=== PATIENT | male | born 1990 | race Two or more races ===

== ENCOUNTER 2020-11-24 04:35 | Inpatient (IN) | payer MEDICAID, OTHER ==
[~2020-11-24] VITALS: Ht 165.1 cm; Wt 137.2 kg
[2020-11-24] MEDS ORDERED: ONDANSETRON ODT 4 MG TAB PO ONE (05:15)
[2020-11-24] MEDS ORDERED: ALUM & MAG HYDROX-SIMETH LIQ(MAALOX) 30 ML PO ONE (05:15)
[2020-11-24] MEDS ORDERED: ACETAMINOPHEN 325 MG TAB PO ONE (05:15)
[2020-11-24 06:30] LABS: Urine WBC None Seen /hpf (0 - 3)
[2020-11-24 07:22] LABS: Calcium 8.9 mg/dL (8.5-10.1); Potassium 3.9 mmol/L (3.5-5.1)
[2020-11-24 07:26] LABS: BUN/Creatinine Ratio 11.6; Basophils # (auto) 0 10 ^3/uL (0-0.2); Basophils % (auto) 0.1 % (0.0-2.0); Bilirubin, Total 0.5 mg/dL (0.2-1.0); Eosinophils # (auto) 0 10 ^3/uL (0-0.8); Eosinophils % (auto) 0.1 % (0.0-7.0); Hematocrit 46.7 % (41.0-53.0); Hemoglobin 15.6 g/dL (13.5-17.5); Lymphocytes # (auto) 1.3 10 ^3/uL (0.4-5.4); Lymphocytes % (auto) 9.3 % (10.0-50.0); Mean Corpuscular Hemoglobin 28.1 pg (28.0-32.0); Mean Corpuscular Hgb Conc. 33.4 g/dL (32.0-36.0); Mean Corpuscular Volume 84.1 fL (80.0-100.0); Monocytes # (auto) 1.1 10 ^3/uL (0-1.3); Monocytes % (auto) 7.6 % (0.0-12.0); Neutrophils # (auto) 11.5 10 ^3/uL (1.6-8.6); Neutrophils % (auto) 82.9 % (37.0-80.0); Nucleated Red Blood Cells % 0.1 %; Red Blood Cells 5.56 10^6/uL (4.5-5.90); Red Cell Distribution Width 14.3 % (11.8-14.3); Total Protein 8.3 g/dL (6.4-8.2); White Blood Cell 13.8 10^3/uL (4.4-10.8)
[2020-11-24 07:30] LABS: Urine Bacteria NONE SEEN /hpf (None Seen); Urine Blood Negative /uL (Negative); Urine Mucus FEW (None Seen); Urine Specific Gravity 1.028 (1.001-1.035)
[2020-11-24] MEDS ORDERED: cefTRIAXone 1GM/50ML D5W 50 ML IV ONE (10:15)
[2020-11-24] MEDS ORDERED: SODIUM CHLORIDE 0.9% 1,000 ML IV ONE (10:15)
[2020-11-24] MEDS ORDERED: METOCLOPRAMIDE HCL 5MG/ml INJ 2ml VIAL IV ONE (10:15)
[2020-11-24] MEDS ORDERED: KETOROLAC TROMETH 30 MG/ML 1ML VIAL IV ONE (10:15)
[2020-11-24] MEDS ORDERED: ONDANSETRON HCL 4 MG/2 ML VIAL IV PRN (14:15)
[2020-11-24] MEDS ORDERED: NITROGLYCERIN 0.4 MG SL TAB SL PRN (14:15)
[2020-11-24] MEDS ORDERED: MORPHINE SULFATE INJECTION 2 MG/ML SYRG IV PRN ×2 (14:15)
[2020-11-24 17:00] VITALS: BP 152/98
[2020-11-24] MEDS ORDERED: ACETAMINOPHEN 500 MG TAB PO ONE (17:24)
[2020-11-24 17:38] VITALS: BP 152/98
[2020-11-24] MEDS: PIPERACILLIN-TAZOB 3.375GM 100 ML IV SCH ×2 (18:30→23:58)
[2020-11-24] MEDS: D5W/SOD CHL 0.45%/KCL 20MEQ 1,000 ML IV SCH (18:30)
[2020-11-24 20:00] VITALS: BP 124/64
[2020-11-24 22:00] VITALS: BP 124/64
[2020-11-25] MEDS: D5W/SOD CHL 0.45%/KCL 20MEQ 1,000 ML IV SCH ×3 (00:20→21:14)
[2020-11-25 05:00] VITALS: BP 111/66
[2020-11-25] MEDS: PIPERACILLIN-TAZOB 3.375GM 100 ML IV SCH ×2 (05:56→12:00)
[2020-11-25 06:40] LABS: Basophils # (auto) 0 10 ^3/uL (0-0.2); Basophils % (auto) 0.4 % (0.0-2.0); Eosinophils # (auto) 0.1 10 ^3/uL (0-0.8); Eosinophils % (auto) 1.8 % (0.0-7.0); Hematocrit 40.4 % (41.0-53.0); Hemoglobin 13.6 g/dL (13.5-17.5); Lymphocytes # (auto) 1.7 10 ^3/uL (0.4-5.4); Lymphocytes % (auto) 28.5 % (10.0-50.0); Mean Corpuscular Hemoglobin 28.6 pg (28.0-32.0); Mean Corpuscular Hgb Conc. 33.7 g/dL (32.0-36.0); Mean Corpuscular Volume 84.7 fL (80.0-100.0); Monocytes # (auto) 0.6 10 ^3/uL (0-1.3); Monocytes % (auto) 10.7 % (0.0-12.0); Neutrophils # (auto) 3.5 10 ^3/uL (1.6-8.6); Neutrophils % (auto) 58.6 % (37.0-80.0); Nucleated Red Blood Cells % 0.1 %; Red Blood Cells 4.76 10^6/uL (4.5-5.90); Red Cell Distribution Width 14.3 % (11.8-14.3)
[2020-11-25 06:52] LABS: Albumin 3.1 g/dL (3.4-5.0); Calcium 8.2 mg/dL (8.5-10.1); Potassium 4.2 mmol/L (3.5-5.1)
[2020-11-25 06:57] LABS: BUN/Creatinine Ratio 9.7; Bilirubin, Total 1.4 mg/dL (0.2-1.0); Total Protein 6.4 g/dL (6.4-8.2)
[2020-11-25 08:00] VITALS: BP 119/66
[2020-11-25 09:31] VITALS: BP 119/66
[2020-11-25 09:58] LABS: INR 1.07 (0.9-1.15); Partial Thromboplastin Time 27.5 sec (23.6-33.0)
[2020-11-25] MEDS ORDERED: ceFAZolin 1GM/50ML 150 ML IV ONE (12:30)
[2020-11-25 12:47] VITALS: BP 120/78
[2020-11-25] MEDS ORDERED: FAMOTIDINE (10MG/ML) 2ML VL IV ONE (13:10)
[2020-11-25] MEDS ORDERED: SUCCINYLCHOLINE CHLORIDE 20 MG/ML 10ML VIAL IV ONE (13:11)
[2020-11-25] MEDS ORDERED: HYDROmorphone HCL 2 MG/ML VL ONE (13:12)
[2020-11-25] MEDS ORDERED: MIDAZOLAM HCL 2MG/2ML 2ml VIAL (1mg/ml) ONE (13:12)
[2020-11-25] MEDS ORDERED: fentaNYL CITRATE 100 MCG/2 ML VL ONE (13:12)
[2020-11-25] MEDS ORDERED: KETOROLAC TROMETH 30 MG/ML 1ML VIAL ONE (13:13)
[2020-11-25] MEDS ORDERED: ONDANSETRON HCL 4 MG/2 ML VIAL ONE (13:13)
[2020-11-25] MEDS ORDERED: DexAMETHasone SOD PHOS 10MG/1ML VIAL INJ ONE (13:13)
[2020-11-25] MEDS ORDERED: GLYCOPYRROLATE 0.2 MG/ML 1ML VIAL ONE (13:13)
[2020-11-25] MEDS ORDERED: LIDOCAINE 2% (LOCAL ANESTH.) PF 5ml SDV ONE (13:13)
[2020-11-25] MEDS ORDERED: PROPOFOL 10 MG/ML 20 ML IV ONE (13:13)
[2020-11-25] MEDS ORDERED: SUGAMMADEX 200mg/2ml Vial (100MG/ML) IV ONE (13:18)
[2020-11-25] MEDS ORDERED: LIDOCAINE 1%-Mpf/Epinephrine 1:200,000 ONE (13:22)
[2020-11-25] MEDS ORDERED: BUPIVACAINE 0.5% MPF INJ 30ML SDV IJ ONE (13:24)
[2020-11-25] MEDS ORDERED: HYDROmorphone HCL 2 MG/ML VL IV PRN ×2 (14:30→15:00)
[2020-11-25] MEDS ORDERED: ONDANSETRON HCL 4 MG/2 ML VIAL IV PRN ×2 (14:30→15:00)
[2020-11-25] MEDS ORDERED: D5W/SOD CHL 0.45%/KCL 20MEQ 1,000 ML IV ONE (14:30)
[2020-11-25 16:43] VITALS: BP 131/76
[2020-11-25] MEDS: ceFAZolin 1GM/50ML 50 ML IV SCH (21:13)
[2020-11-25 22:00] VITALS: BP 129/69
[2020-11-25] MEDS ORDERED: metroNIDAZOLE 500MG/100ML 100 ML IV SCH (22:00)
[2020-11-26 05:00] VITALS: BP 100/63
[2020-11-26 05:59] LABS: Basophils # (auto) 0 10 ^3/uL (0-0.2); Basophils % (auto) 0.1 % (0.0-2.0); Eosinophils # (auto) 0 10 ^3/uL (0-0.8); Hematocrit 39.3 % (41.0-53.0); Hemoglobin 12.8 g/dL (13.5-17.5); Lymphocytes # (auto) 0.8 10 ^3/uL (0.4-5.4); Mean Corpuscular Hemoglobin 27.4 pg (28.0-32.0); Mean Corpuscular Hgb Conc. 32.5 g/dL (32.0-36.0); Mean Corpuscular Volume 84.3 fL (80.0-100.0); Neutrophils # (auto) 7.4 10 ^3/uL (1.6-8.6); Neutrophils % (auto) 79.9 % (37.0-80.0); Red Blood Cells 4.67 10^6/uL (4.5-5.90); Red Cell Distribution Width 14.3 % (11.8-14.3); White Blood Cell 9.3 10^3/uL (4.4-10.8)
[2020-11-26] MEDS: ceFAZolin 1GM/50ML 50 ML IV SCH (06:24)
[2020-11-26 06:42] LABS: Bilirubin, Direct 0.1 mg/dL (0-0.2); Bilirubin, Total 0.4 mg/dL (0.2-1.0); Total Protein 6.4 g/dL (6.4-8.2)
[2020-11-26 08:00] VITALS: BP 116/80
[2020-11-26 09:00] VITALS: BP 116/80
[2020-11-26] MEDS ORDERED: CEPH-322 PO (09:33)
[2020-11-26] MEDS ORDERED: IBUP400T22 PO (09:33)
[2020-11-26] MEDS ORDERED: PANTOPRAZOLE 40 MG/10 ML VIAL INJ IV SCH (10:00)
[2020-11-26 10:12] VITALS: BP 116/80
== END 2020-11-26 12:00 | disposition home or self-care (01) | DRG 263 ==
LOC: ER 04:35 → OVERFLOW 14:15 → WEST WING 16:50
PROVIDERS: ADMIT Nurse Practitioner Acute Care; ATTEND Internal Medicine
PROC: 0FT44ZZ Resection of Gallbladder, Percutaneous Endoscopic Approach (ICD-10-PCS; principal; 2020-11-25 13:35)
DX: K80.01 Calculus of gallbladder with acute cholecystitis with obstruction (principal); R65.10 Systemic inflammatory response syndrome (SIRS) of non-infectious origin without acute organ dysfunction; K76.0 Fatty (change of) liver, not elsewhere classified; E66.01 Morbid (severe) obesity due to excess calories; Z68.43 Body mass index [BMI] 50.0-59.9, adult; Z20.822 Contact with and (suspected) exposure to COVID-19; R79.89 Other specified abnormal findings of blood chemistry
CPT/HCPCS: 36415; 71046; 76705; 78226; 80053; 80076; 81001; 83690; 84443; 85025; 85610; 85730; 86850; 86900; 86901; 87426; 93005; 96361; 96374; C9113; G0378; J0330; J0690; J0696; J1100; J1885; J2001; J2250; J2405; J2543; J2704; J3490; Q0162

== ENCOUNTER 2024-10-21 10:33 | Inpatient (IN) | payer MEDICAID ==
[~2024-10-21] VITALS: Ht 165.1 cm; Wt 136.4 kg
[~2024-10-21 10:33] MED LIST: CEPH250C PO; IBUP-1453 PO
--- NOTE | 2024-10-21 11:04 | ED.PDOC ---
General HPI Comments 34 year old male presents to the ED with a chief complaint of LT flank pain onset 3 days. Patient states he began experiencing LT testicle pain, radiated to LT flank. He is also experiencing chills, sweats. Denies any PMHx as well as fever, dysuria, hematuria, nausea, vomiting, diarrhea, chest pain,shortness of breath, dizziness. No other symptoms or modifying factors present a this time. Chief Complaint: Flank Pain Time Seen by MD: 10:55 Reviewed notes: Medications, Allergies Allergies: Coded Allergies: NO KNOWN ALLERGIES (Unverified , 11/24/20) Home Meds Active Scripts Ibuprofen (Ibuprofen) 400 Mg Tab, 1 TAB PO Q6HPRN, #20 TAB Prov:CLARIBEL BARNES MD 11/26/20 Cephalexin (KEFLEX CAPSULE) 250 Mg Cp, 2 CAP PO BID for 3 Days, #12 CAP Prov:CLARIBEL BARNES MD 11/26/20 Information Source: Patient Mode of Arrival: Ambulatory Severity: Moderate Timing: Days Duration: Since onset Prehospital treatment: None Onset: Spontaneous Symptoms: Other History of: None Location: (L)Flank Penile discharge: None Modifying factors: None associated signs and symptoms: Flank Pain Past Medical History PAST MEDICAL HISTORY: Denies Surgical History: Cholecystectomy Family History Family History: Family hx of liver ricardo Social History Smoker: Non-Smoker Alcohol: Denies ETOH Use Drugs: Denies Drug Use Lives In: Home Constitutional: denies: chills, diaphoresis, fatigue, fever, malaise, sweats, weakness, others EENTM: denies: blurred vision, double vision, ear bleeding, ear discharge, ear drainage, ear pain, ear ringing, eye pain, eye redness, hearing loss, mouth pain, mouth swelling, nasal discharge, nose bleeding, nose congestion, nose pain, photophobia, tearing, throat pain, throat swelling, voice changes, others Respiratory: denies: cough, hemoptysis, orthopnea, SOB at rest, shortness of breath, SOB with excertion, stridor, wheezing, others Cardiovascular: denies: chest pain, dizzy spells, diaphoresis, Dyspnea on exertion, edema, irregular heart beat, left arm pain, lightheadedness, palpitations, PND, syncope, others Gastrointestinal: denies: abdomen distended, abdominal pain, blood streaked bowels, constipated, diarrhea, dysphagia, difficulty swallowing, hematemesis, melena, nausea, poor appetite, poor fluid intake, rectal bleeding, rectal pain, vomiting, others Genitourinary: reports: flank pain, testicle pain; denies: burning, dysuria, frequency, hematuria, incontinence, penile discharge, penile sore, pain, testicle swelling, urgency, others Neurological: denies: dizziness, fainting, headache, left sided numbness, left sided weakness, numbness, paresthesia, pre-existing deficit, right sided numbness, right sided weakness, seizure, speech problems, tingling, tremors, weakness, others Musculoskeletal: denies: back pain, gout, joint pain, joint swelling, muscle pain, muscle stiffness, neck pain, others Integumetry: denies: bruises, change in color, change in hair/nails, dryness, laceration, lesions, lumps, rash, wounds, others Allergic/Immunocompromised: denies: Difficulty Healing, Frequent Infections, Hives, Itching, others Hematologic/Lymphatic: denies: anemia, blood clots, easy bleeding, easy bruising, swollen glands, others Endocrine: denies: excessive hunger, excessive sweating, excessive thirst, excessive urination, flushing, intolerance to cold, intolerance to heat, unexplained weight gain, unexplained weight loss, others Psychiatric: denies: anxiety, bipolar disorder, depression, hopeless, panic disorder, schizophrenia, sleepless, suicidal, others All Other Systems: Reviewed and Negative Physical Exam General Appearance: Moderate Distress, Normal HEENT: Normal ENT Inspection, Pharynx Normal, TMs Normal Neck: Full Range of Motion, Non-Tender, Normal, Normal Inspection Respiratory: Chest Non-Tender, Lungs Clear, No Accessory Muscle Use, No Respiratory Distress, Normal Breath Sounds Cardiovascular: No Edema, No JVD, No Murmur, No Gallop, Normal Peripheral Pulses, Regular Rate/Rhythm Breast Exam: Deferred Gastrointestinal: No Organomegaly, Non Tender, No Pulsatile Mass, Normal Bowel Sounds, Soft Genitalia: Deferred Pelvic: Deferred Rectal: Deferred Extremities: No calf tenderness, Normal capillary refill, Normal inspection, Normal range of motion, Non-tender, No pedal edema Musculoskeletal : Apperance: Normal Neurologic: Alert, coloring checker II-XII nml as Tested, No Motor Deficits, Normal Affect, Normal Mood, No Sensory Deficits Cerebellar Function: Normal Reflexes: Normal Skin: Dry, Normal Color, Warm Peripheral Pulses: 3+ Radial (R), 3+ Radial (L) Lymphatic: No Adenopathy Was a procedure done? Was a procedure done?: No Differential Diagnosis Kidney stone (Female): Musculoskeletal pain, Urinary obstruction, Urolithiasis X-Ray, Labs, Meds, VS Vital Signs Date Time Temp Pulse Resp B/P (MAP) Pulse Ox O2 Delivery O2 Flow Rate FiO2 10/21/24 14:31 98.6 92 18 141/94 (110) 95 98.6 10/21/24 14:26 141/94 10/21/24 10:37 98.4 98 17 159/90 97 98.4 Lab Test 10/21/24 13:51 Range/Units White Blood Count 12.1 H 4.4-10.8 10^3/uL Red Blood Count 5.47 4.5-5.90 10^6/uL Hemoglobin 14.7 13.5-17.5 g/dL Hematocrit 45.4 41.0-53.0 % Mean Corpuscular Volume 83.0 80.0-100.0 fL Mean Corpuscular Hemoglobin 26.9 L 28.0-32.0 pg Mean Corpuscular Hemoglobin Concent 32.4 32.0-36.0 g/dL Red Cell Distribution Width 13.8 11.8-14.3 % Platelet Count 288 140-450 10^3/uL Mean Platelet Volume 7.6 6.9-10.8 fL Neutrophils (%) (Auto) 86.6 H 37.0-80.0 % Lymphocytes (%) (Auto) 8.0 L 10.0-50.0 % Monocytes (%) (Auto) 5.2 0.0-12.0 % Eosinophils (%) (Auto) 0.1 0.0-7.0 % Basophils (%) (Auto) 0.1 0.0-2.0 % Neutrophils # (Auto) 10.4 H 1.6-8.6 10 ^3/uL Lymphocytes # (Auto) 1.0 0.4-5.4 10 ^3/uL Monocytes # (Auto) 0.6 0-1.3 10 ^3/uL Eosinophils # (Auto) 0 0-0.8 10 ^3/uL Basophils # (Auto) 0 0-0.2 10 ^3/uL Nucleated Red Blood Cells 0.0 % Sodium Level 143 136-145 mmol/L Potassium Level 4.3 3.5-5.1 mmol/L Chloride Level 108 H 98-107 mmol/L Carbon Dioxide Level 27 20-31 mmol/L Anion Gap 8 5-15 Blood Urea Nitrogen 17 9-23 mg/dL Creatinine 1.80 H 0.700-1.30 mg/dL Glomerular Filtration Rate Calc 50 >90 mL/min BUN/Creatinine Ratio 9.4 L 10.0-20.0 Serum Glucose 134 H 74-106 mg/dL Hemoglobin A1c 5.7 <5.7 % A1C Calcium Level 9.5 8.7-10.4 mg/dL Magnesium Level 2.1 1.6-2.6 mg/dL Total Bilirubin Pending Direct Bilirubin Pending Aspartate Amino Transferase (AST) Pending Alanine Aminotransferase (ALT) Pending Alkaline Phosphatase Pending Total Protein Pending Albumin Pending Free Prostate Specific Antigen Pending Percent Free Prostate Specific Ag Pending Prostate Specific Antigen Total Pending Vitamin B12 Level 353 211-911 pg/mL Vitamin D 25-Hydroxy 39.8 30.0-100 ng/mL Folic Acid 13.54 >5.38 ng/mL Thyroid Stimulating Hormone (TSH) 2.01 0.55-4.78 uIU/mL Current Medications Medications (Trade) Dose Ordered Sig/Yovani Route Start Time Stop Time Status Last Admin Tamsulosin HCl (Flomax) 0.4 mg ONCE ONCE PO 10/21/24 13:45 10/21/24 13:46 DC 10/21/24 14:26 Furosemide (Lasix Injection) 20 mg ONCE ONCE IV 10/21/24 13:45 10/21/24 13:46 DC 10/21/24 14:26 Ketorolac Tromethamine (Toradol Injection) 30 mg ONCE ONCE IV 10/21/24 13:45 10/21/24 13:46 DC 10/21/24 14:26 Patient alert. Complaining of flank pain. Blood in the urine. Possible prostate. CT scan of the abdomen reviewed does show a kidney stone. Was given Lasix. Was given Flomax. Was given Toradol. Explained to the patient. Continue monitoring. . [address] [address] Ph: [phone] DIAGNOSTIC IMAGING Diagnostic Imaging Report : [id number] Signed PATIENT: JANET DESAIOACCT: [id number] UNIT: [id number] : 1990 LOC: ER ROOM / BED: / AGE / SEX: 34 / M ADM STATUS: REG ER SERVICE 1111 ORDERING PHYSICIAN: NESHA TYLER MD PROCEDURE(s): ABPL - CT AB PEL WO CON-NO ORAL OR IV REASON: stone ORDER NUMBER(s): [id number], ACCESSION NUMBER(s): [id number] EXAM: CT CT AB PEL WO CON-NO ORAL OR IV HISTORY: stone 34-year-old male with abdominal pain. COMPARISON: None TECHNIQUE: Helical CT images of the abdomen and pelvis were performed without contrast. Sagittal and coronal reformatted images were obtained. This CT exam was performed using one or more of the following dose reduction techniques: Auto mated exposure control, adjustment of the mA and/or kV according to patient size, or use of iterative reconstruction technique. Radiation Dose: CT Abdomen/Pelvis: CTDIvol 25.5 mGy, DLP 1828.08 mGy*cm. FINDINGS: Urinary tract: There is mild left hydronephrosis and hydroureter secondary to a distal ureteral 2.5 mm calculus (images 95-96, series 2). No right renal or ureteral calculi, hydronephrosis, or hydroureter. No urinary bladder calculi. The prostate is mildly enlarged. Miscellaneous: The heart is not enlarged. There is a calcified granuloma in the right upper lobe just above the horizontal fissure.. The gallbladder is nick gically absent. The liver is diffusely fatty density and measures 19 cm longitudinal. The noncontrast spleen, pancreas, and adrenal glands are unremarkable. No abdominal aortic aneurysm. No abnormal bowel dilatation, free air, or free fluid. There are descending and sigmoid colon diverticula without evidence of acute diverticulitis. The appendix is not dilated and does not appea r inflamed. There are degenerative changes of the sacroiliac joints, greater on the right. 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 There is [id number] lumbar degenerative disc disease. There is mild anterior wedging of the T10 and T11 vertebral bodies which may be due to chronic mild compression fractures or sequela of degenerative disc disease. IMPRESSION: 1. 2.5 mm left distal ureteral calculus with associated mild left hydronephrosis and hydroureter. 2. Hepatic steatosis. 3. Postoperative changes of cholecystectomy. 4. Mild prostatic enlargement. 5. Descending and sigmoid colon diverticulosis without evidence of acute diverticulitis. 6. No evidence of bowel obstruction, acute appendicitis, or other acute process in the abdomen or pelvis. ATED BY: RINA URIARTE MD DICTATED DATE/TIME: 10/21/24 1210 SIGNED BY: RINA URIARTE MD SIGNED DATE/TIME: 10/21/24 1210 CC: Time of 1ST Reevaluation: 11:25 Reevaluation 1ST: Unchanged Patient Education/Counseling: Diagnosis, Treatment, Prognosis Family Education/Counseling: No Family Present SEPSIS Sepsis Screen Date sepsis recognized/suspect: Oct 21, 2024 Time Sepsis recognized/suspect: 1039 Recent Procedure: No Respiratory Rate >20: No Heart Rate >90: Yes Temp<36 C (96.8 F) or >38.3 C: No SBP <90 or MAP <65 mmHG: No New Acute Mental Status Change: No Is the patient on CPAP, BIPAP,: No Physician Orders Ct Ab Pel Wo Con-No Oral Or Iv (10/21/24 11:11) Vital Signs Date Time Temp Pulse Resp B/P (MAP) Pulse Ox O2 Delivery O2 Flow Rate FiO2 10/21/24 14:31 98.6 92 18 141/94 (110) 95 98.6 10/21/24 14:26 141/94 10/21/24 10:37 98.4 98 17 159/90 97 98.4 Laboratory Tests Test 10/21/24 13:51 White Blood Count 12.1 10^3/uL (4.4-10.8) H Medications Medications Dose Ordered Sig/Yovani Route Start Time Stop Time Status Last Admin Dose Admin Furosemide 20 mg ONCE ONCE IV 10/21/24 13:45 10/21/24 13:46 DC 10/21/24 14:26 Ketorolac Tromethamine 30 mg ONCE ONCE IV 10/21/24 13:45 10/21/24 13:46 DC 10/21/24 14:26 Tamsulosin HCl 0.4 mg ONCE ONCE PO 10/21/24 13:45 10/21/24 13:46 DC 10/21/24 14:26 Departure 1 Departure Time of Disposition: 17:42 Impression: Primary Impression: Kidney stone Additional Impression: Hydronephrosis Qualified Codes: N13.30 - Unspecified hydronephrosis Disposition: ADMITTED INPATIENT Admit to: Med Surg Condition: Guarded Critical Care Note Critical Care Time?: No Stability Stability form required: No Heart Score Heart Score: Heart Score Response (Comments) Value History N/A 0 EKG N/A 0 Age N/A 0 Risk Factors N/A 0 Troponin N/A 0 Total 0 I personally scribed for NESHA TYLER MD ([email or web address]) on 10/21/24 at 11:04. Electronically submitted by Donna Turk ([email or web address]). I personally scribed for NESHA TYLER MD ([email or web address]) on 10/21/24 at 12:37. Electronically submitted by Donna Turk ([email or web address]). NESHA TYLER MD Oct 21, 2024 11:04
--- NOTE | 2024-10-21 12:12 | DVH ---
EXAM: CT CT AB PEL WO CON-NO ORAL OR IV HISTORY: stone 34-year-old male with abdominal pain. COMPARISON: None TECHNIQUE: Helical CT images of the abdomen and pelvis were performed without contrast. Sagittal and coronal ref ormatted images were obtained. This CT exam was performed using one or more of the following dose red uction techniques: Automated exposure control, adjustment of the mA and/or kV according to patient si ze, or use of iterative reconstruction technique. Radiation Dose: CT Abdomen/Pelvis: CTDIvol 25.5 mGy, DLP 1828.08 mGy*cm. FINDINGS: Urinary tract: There is mild left hydronephrosis and hydroureter secondary to a distal ureteral 2.5 m m calculus (images 95-96, series 2). No right renal or ureteral calculi, hydronephrosis, or hydrouret er. No urinary bladder calculi. The prostate is mildly enlarged. Miscellaneous: The heart is not enlarged. There is a calcified granuloma in the right upper lobe just above the horizontal fissure.. The gallbladder is surgically absent. The liver is diffusely fatty d ensity and measures 19 cm longitudinal. The noncontrast spleen, pancreas, and adrenal glands are unre markable. No abdominal aortic aneurysm. No abnormal bowel dilatation, free air, or free fluid. Ther e are descending and sigmoid colon diverticula without evidence of acute diverticulitis. The appendix is not dilated and does not appear inflamed. There are degenerative changes of the sacroiliac joint s, greater on the right. 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 There is nxpo-hh-vizlafi e lumbar degenerative disc disease. There is mild anterior wedging of the T10 and T11 vertebral bodi es which may be due to chronic mild compression fractures or sequela of degenerative disc disease. IMPRESSION: 1. 2.5 mm left distal ureteral calculus with associated mild left hydronephrosis and hydroureter. 2. Hepatic steatosis. 3. Postoperative changes of cholecystectomy. 4. Mild prostatic enlargement. 5. Descending and sigmoid colon diverticulosis without evidence of acute diverticulitis. 6. No evidence of bowel obstruction, acute appendicitis, or other acute process in the abdomen or pel vis.
[2024-10-21 14:04] LABS: Hematocrit 45.4 % (41.0-53.0); Hemoglobin 14.7 g/dL (13.5-17.5); Mean Corpuscular Hemoglobin 26.9 pg (28.0-32.0); Mean Corpuscular Volume 83.0 fL (80.0-100.0); Nucleated Red Blood Cells % 0.0 %
[2024-10-21 14:10] LABS: Potassium 4.3 mmol/L (3.5-5.1); Sodium 143 mmol/L (136-145)
[2024-10-21 14:11] LABS: Anion Gap 8 (5-15); Calcium 9.5 mg/dL (8.7-10.4); Carbon Dioxide 27 mmol/L (20-31)
[2024-10-21 14:16] LABS: BUN/Creatinine Ratio 9.4 (10.0-20.0); Blood Urea Nitrogen 17 mg/dL (9-23); Chloride 108 mmol/L (98-107); Glucose 134 mg/dL (74-106)
[2024-10-21] MEDS: KETOROLAC TROMETH 30 MG/ML 1ML VIAL IV ONE (14:26)
[2024-10-21] MEDS: TAMSULOSIN HYDROCHLORIDE 0.4 MG CAP PO ONE (14:26)
[2024-10-21] MEDS: FUROSEMIDE 20 MG/2 ML VIAL IV ONE (14:26)
[2024-10-21] MEDS: SODIUM CHLORIDE 0.9% 1,000 ML IV ONE ×2 (14:26→14:27)
[2024-10-21 14:31] VITALS: BP 141/94; PULSE 92; RESP 18; TEMP 98.6; O2SAT 95
[2024-10-21] MEDS ORDERED: ACETAMINOPHEN 325 MG TAB PO PRN (15:15)
[2024-10-21] MEDS ORDERED: MORPHINE SULFATE INJ 2 MG/ml SYRG IV PRN (15:15)
[2024-10-21] MEDS: MANNITOL 20% SOLN 100 gm/500ml 100 ML IV ONE (15:15)
[2024-10-21] MEDS: SODIUM CHLORIDE 0.9% 1,000 ML IV SCH (15:15)
[2024-10-21] MEDS: TAMSULOSIN HYDROCHLORIDE 0.4 MG CAP PO SCH (15:15)
[2024-10-21] MEDS: PANTOPRAZOLE 40 MG TAB PO ONE (15:15)
--- NOTE | 2024-10-21 15:19 | DVHHP2 ---
History of Present Illness History of Present Illness Patient is 34 years old male with morbid obesity came with a comfortably flank pain. S the patient history of having left testicular pain in the morning with ready to the left flank, intermittent, 8/10, really with some pain medication. Pain is associated nausea but no vomiting. Patient also reported some cheese and switching but no chest pain or shortness of breath or acute joint pain or swelling or DC UTI. Initial lab workup revealed leukocytosis WBC 12.1, neutrophil 86%, serum creatinine 1.80, GFR 50. CT abdomen pelvis reviewed1. 2.5 mm left distal ureteral calculus with associated mild left hydronephrosis and hydroureter. Hepatic steatosis. Postoperative changes of cholecystectomy. Mild prostatic enlargement. Descending and sigmoid colon diverticulosis without evidence of acute diverticulitis. PMH-none PSH- cholecystectomy Family history-mother has kidney disease Allergy- NKDA Personal History/ Social History- occasional alcoholic, denies smoking or drug abuse, lives with the family Review of Systems Review of Systems Review of other system Cardiovascular- deny acute chest pain or shortness of breath or cough or palp itation Respiratory denies cough or short of breath or wheezing Gastrointestinal- denies any rectal bleeding, nausea or vomiting Musculoskeletal-denies acute joint swelling or tenderness or redness Neurological- denies acute dysarthria, dysphagia, change in vision Psychiatry- denies depression or SI or HI Skin- denies acute rash or purpura Allergies: Coded Allergies: NO KNOWN ALLERGIES (Unverified , 11/24/20) Medications Current Medications Medications Dose Ordered Sig/Yovani Route Start Time Stop Time Status Last Admin Dose Admin Sodium Chloride 1,000 ml @ 125 mls/hr Q8H IV 10/21/24 15:15 UNV Acetaminophen 650 mg Q6HP PRN PO 10/21/24 15:15 UNV Exam Vital Signs Vital Signs Date Time Temp Pulse Resp B/P (MAP) Pulse Ox O2 Delivery O2 Flow Rate FiO2 10/21/24 14:31 98.6 92 18 141/94 (110) 95 98.6 Exam General examination- awake, alert, oriented HEENT- PEERLA, no acute nasal discharge Cardiovascular- S1-S2 audible, rate and rhythm regular, no murmur Respiratory- CTAB, no wheeze or rhonchi Gastrointestinal-nontender, bowel sound+. Nondistended Musculoskeletal-no acute joint swelling or tenderness or redness Renal system-no renal angle tenderness or costovertebral tenderness Lower extremity- no leg edema Neurological- cranial nerves intact, no acute dysarthria or dysphagia Psychiatry- denies depression or SI or HI Skin- no acute rash or purpura Labs/Xrays Labs Test 10/21/24 13:51 Range/Units White Blood Count 12.1 H 4.4-10.8 10^3/uL Red Blood Count 5.47 4.5-5.90 10^6/uL Hemoglobin 14.7 13.5-17.5 g/dL Hematocrit 45.4 41.0-53.0 % Mean Corpuscular Volume 83.0 80.0-100.0 fL Mean Corpuscular Hemoglobin 26.9 L 28.0-32.0 pg Mean Corpuscular Hemoglobin Concent 32.4 32.0-36.0 g/dL Red Cell Distribution Width 13.8 11.8-14.3 % Platelet Count 288 140-450 10^3/uL Mean Platelet Volume 7.6 6.9-10.8 fL Neutrophils (%) (Auto) 86.6 H 37.0-80.0 % Lymphocytes (%) (Auto) 8.0 L 10.0-50.0 % Monocytes (%) (Auto) 5.2 0.0-12.0 % Eosinophils (%) (Auto) 0.1 0.0-7.0 % Basophils (%) (Auto) 0.1 0.0-2.0 % Neutrophils # (Auto) 10.4 H 1.6-8.6 10 ^3/uL Lymphocytes # (Auto) 1.0 0.4-5.4 10 ^3/uL Monocytes # (Auto) 0.6 0-1.3 10 ^3/uL Eosinophils # (Auto) 0 0-0.8 10 ^3/uL Basophils # (Auto) 0 0-0.2 10 ^3/uL Nucleated Red Blood Cells 0.0 % Sodium Level 143 136-145 mmol/L Potassium Level 4.3 3.5-5.1 mmol/L Chloride Level 108 H 98-107 mmol/L Carbon Dioxide Level 27 20-31 mmol/L Anion Gap 8 5-15 Blood Urea Nitrogen 17 9-23 mg/dL Creatinine 1.80 H 0.700-1.30 mg/dL Glomerular Filtration Rate Calc 50 >90 mL/min BUN/Creatinine Ratio 9.4 L 10.0-20.0 Serum Glucose 134 H 74-106 mg/dL Calcium Level 9.5 8.7-10.4 mg/dL SEPSIS Sepsis Screen Date sepsis recognized/suspect: Oct 21, 2024 Time Sepsis recognized/suspect: 9 Recent Procedure: No Respiratory Rate >20: No Heart Rate >90: Yes Temp<36 C (96.8 F) or >38.3 C: No SBP <90 or MAP <65 mmHG: No New Acute Mental Status Change: No Is the patient on CPAP, BIPAP,: No Physician Orders Ct Ab Pel Wo Con-No Oral Or Iv (10/21/24 11:11) Sodium Chloride 0.9% (10/21/24 13:45) Admit (10/21/24 15:11) Allergies (10/21/24 15:11) Code Status (10/21/24 15:11) Full Liq Diet (10/21/24 Dinner) Sodium Chloride 0.9% (10/21/24 15:15) Complete Blood Count (10/22/24 04:00) Comprehensive Metabolic Panel (10/22/24 04:00) Acetaminophen Tablet (Tylenol Tablet) (10/21/24 15:15) Notify Of Changes From Base (10/21/24 15:11) Vital Signs Date Time Temp Pulse Resp B/P (MAP) Pulse Ox O2 Delivery O2 Flow Rate FiO2 10/21/24 14:31 98.6 92 18 141/94 (110) 95 98.6 10/21/24 14:26 141/94 10/21/24 10:37 98.4 98 17 159/90 97 98.4 Laboratory Tests Test 10/21/24 13:51 White Blood Count 12.1 10^3/uL (4.4-10.8) H Medications Medications Dose Ordered Sig/Yovani Route Start Time Stop Time Status Last Admin Dose Admin Furosemide 20 mg ONCE ONCE IV 10/21/24 13:45 10/21/24 13:46 DC 10/21/24 14:26 20 MG Ketorolac Tromethamine 30 mg ONCE ONCE IV 10/21/24 13:45 10/21/24 13:46 DC 10/21/24 14:26 30 MG Tamsulosin HCl 0.4 mg ONCE ONCE PO 10/21/24 13:45 10/21/24 13:46 DC 10/21/24 14:26 0.4 MG Assessment/Plan Assessment/Plan Assessment and plan # nephrolithiasis with left-sided hydroureter and hydronephrosis # suspected left-sided pyelonephritis # intractable left flank pain with nausea likely due to above # leukocytosis under evaluation - CT abdomen pelvis reviewed1. 2.5 mm left distal ureteral calculus with associated mild left hydronephrosis and hydroureter. Hepatic steatosis. Postoperative changes of cholecystectomy. Mild prostatic enlargement. Descending and sigmoid colon diverticulosis without evidence of acute diverticulitis. -continue Flomax 0.4 mg p.o. daily -ceftriaxone 2 g IV daily -continue IV normal saline as prescribed -ordered mannitol IV -strain all urine -pending Urology consult -pending urinalysis # BRANDON likely due to VMN -continue IV fluid as prescribed -monitor BMP # hepatic steatosis -monitor liver function test # morbid obesity -patient was counseled about the effect of obesity on health, weight reduction, physical activity as tolerated, low-fat diet # diverticulosis with the diverticulitis -avoid constipation -high fiber containing diet # benign enlargement of prostate -continue Flomax 0.4 mg p.o. daily Goals of care, Code status ; discussed with >15 minutes PUD prophylaxis: Pantoprazole DVT prophylaxis: Indication for DVT prophylaxis Plan discussed with Dr. Jerome , nursing staff, Total time spent on patient evaluation, chart review, assessment and plan, discussion discussion >35 minutes Plan discussed with: Patient, Other (RN) My Orders Orders - DEXTER KHAN RESIDENT Procedure Category Date Status Time Admit ADMIT 10/21/24 Transmitted 15:11 Allergies [facility] 10/21/24 In Process 15:11 Code Status CODE 10/21/24 Transmitted 15:11 Full Liq Diet DIET 10/21/24 Transmitted Dinner Sodium Chloride 0.9% PHA 10/21/24 Logged 15:15 Complete Blood Count LAB 10/22/24 Verified 04:00 Comprehensive LAB 10/22/24 Verified Metabolic Panel 04:00 Acetaminophen Tablet [facility]A 10/21/24 Logged (Tylenol Tablet) 15:15 Notify Of Changes MAYURI 10/21/24 In Process From Base 15:11 Date of Service: Oct 21, 2024 Billing Provider: OLEG JEROME MD Common Visit Codes: 51577-[id number] INP/OBS CARE (HIGH) Secondary Visit Codes: 42272-[id number] CARE PLAN 30 MINUTES DEXTER KHAN RESIDENT Oct 21, 2024 15:19
--- NOTE | 2024-10-21 16:27 | DVH ---
CLINICAL HISTORY: Rule out renal hydronephrosis/nephrolithiasis/pyelonephritis TECHNIQUE: Complete ultrasound exam of the kidneys and bladder was performed. COMPARISON: None FINDINGS: The right kidney has normal echogenicity and measures 12.5 cm. There is no focal parenchymal abnormal ity or evidence for stone. There is no hydronephrosis. The left kidney has normal echogenicity and measures 11.4 cm. There is no focal parenchymal abnormal ity or evidence for stone. There is no hydronephrosis. The bladder is grossly unremarkable. IMPRESSION: NO SIGNIFICANT SONOGRAPHIC ABNORMALITY OF THE KIDNEYS.
--- NOTE | 2024-10-21 16:49 | DVHINCON2 ---
Date of service: Oct 21, 2024 Referring Physician Hospitalist History of Present Illness History Source: Patient Exam Limitations: No limitations HPI 34 year old male presents to the ED with a chief complaint of LT flank pain onset 3 days. Patient states he began experiencing LT testicle pain, radiated to LT flank. He is also experiencing chills, sweats. Denies any PMHx as well as fever, dysuria, hematuria, nausea, vomiting, diarrhea, chest pain,shortness of breath, dizziness. No other symptoms or modifying factors present a this time. Home Meds Active Scripts Ibuprofen (Ibuprofen) 400 Mg Tab, 1 TAB PO Q6HPRN, #20 TAB Prov:CLARIBEL BARNES MD 11/26/20 Cephalexin (KEFLEX CAPSULE) 250 Mg Cp, 2 CAP PO BID for 3 Days, #12 CAP Prov:CLARIBEL BARNES MD 11/26/20 Past Medical History Patient Family History: Substance abuse G8 FATHER Review of Systems Gastrointestinal: Nausea, Abdominal Pain Genitourinary: Pain H&P Exam Vital Signs Vital Signs Date Time Temp Pulse Resp B/P (MAP) Pulse Ox O2 Delivery O2 Flow Rate FiO2 10/21/24 14:31 98.6 92 18 141/94 (110) 95 98.6 Labs/Xrays [place] [address] Ph: [phone] DIAGNOSTIC IMAGING Diagnostic Imaging Report : [id number] Signed PATIENT: JANET DESAIOACCT: [id number] UNIT: [id number] : 1990 LOC: ER ROOM / BED: / AGE / SEX: 34 / M ADM STATUS: REG ER SERVICE 1111 ORDERING PHYSICIAN: NESHA TYLER MD PROCEDURE(s): ABPL - CT AB PEL WO CON-NO ORAL OR IV REASON: stone ORDER NUMBER(s): [id number], ACCESSION NUMBER(s): [id number] EXAM: CT CT AB PEL WO CON-NO ORAL OR IV HISTORY: stone 34-year-old male with abdominal pain. COMPARISON: None TECHNIQUE: Helical CT images of the abdomen and pelvis were performed without contrast. Sagittal and coronal reformatted images were obtained. This CT exam was performed using one or more of the following dose reduction techniques: Automated exposure control, adjustment of the mA and/or kV according to patient size, or use of iterative reconstruction technique. Radiation Dose: CT Abdomen/Pelvis: CTDIvol 25.5 mGy, DLP 1828.08 mGy*cm. FINDINGS: Urinary tract: There is mild left hydronephrosis and hydroureter secondary to a distal ureteral 2.5 mm calculus (images 95-96, series 2). No right renal or ureteral calculi, hydronephrosis, or hydroureter. No urinary bladder calculi. The prostate is mildly enlarged. Miscellaneous: The heart is not enlarged. There is a calcified granuloma in the right upper lobe just above the horizontal fissure.. The gallbladder is surgically absent. The liver is diffusely fatty density and measures 19 cm longitudinal. The noncontrast spleen, pancreas, and adrenal glands are unremarkable. No abdominal aortic aneurysm. No abnormal bowel dilatation, free air, or free fluid. There are descending and sigmoid colon diverticula without evidence of acute diverticulitis. The appendix is not dilated and does not appear inflamed. There are degenerative changes of the sacroiliac joints, greater on the right. 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 There is [id number] lumbar degenerative disc disease. There is mild anterior wedging of the T10 and T11 vertebral bodies which may be due to chronic mild compression fractures or sequela of degenerative disc disease. IMPRESSION: 1. 2.5 mm left distal ureteral calculus with associated mild left hydronephrosis and hydroureter. 2. Hepatic steatosis. 3. Postoperative changes of cholecystectomy. 4. Mild prostatic enlargement. 5. Descending and sigmoid colon diverticulosis without evidence of acute diverticulitis. 6. No evidence of bowel obstruction, acute appendicitis, or other acute process in the abdomen or pelvis. ATED BY: RINA URIARTE MD DICTATED DATE/TIME: 10/21/241209 SIGNED BY: RINA URIARTE MD SIGNED DATE/TIME: 10/21/241209 CC: Labs Test 10/21/24 13:51 Range/Units White Blood Count 12.1 H 4.4-10.8 10^3/uL Red Blood Count 5.47 4.5-5.90 10^6/uL Hemoglobin 14.7 13.5-17.5 g/dL Hematocrit 45.4 41.0-53.0 % Mean Corpuscular Volume 83.0 80.0-100.0 fL Mean Corpuscular Hemoglobin 26.9 L 28.0-32.0 pg Mean Corpuscular Hemoglobin Concent 32.4 32.0-36.0 g/dL Red Cell Distribution Width 13.8 11.8-14.3 % Platelet Count 288 140-450 10^3/uL Mean Platelet Volume 7.6 6.9-10.8 fL Neutrophils (%) (Auto) 86.6 H 37.0-80.0 % Lymphocytes (%) (Auto) 8.0 L 10.0-50.0 % Monocytes (%) (Auto) 5.2 0.0-12.0 % Eosinophils (%) (Auto) 0.1 0.0-7.0 % Basophils (%) (Auto) 0.1 0.0-2.0 % Neutrophils # (Auto) 10.4 H 1.6-8.6 10 ^3/uL Lymphocytes # (Auto) 1.0 0.4-5.4 10 ^3/uL Monocytes # (Auto) 0.6 0-1.3 10 ^3/uL Eosinophils # (Auto) 0 0-0.8 10 ^3/uL Basophils # (Auto) 0 0-0.2 10 ^3/uL Nucleated Red Blood Cells 0.0 % Sodium Level 143 136-145 mmol/L Potassium Level 4.3 3.5-5.1 mmol/L Chloride Level 108 H 98-107 mmol/L Carbon Dioxide Level 27 20-31 mmol/L Anion Gap 8 5-15 Blood Urea Nitrogen 17 9-23 mg/dL Creatinine 1.80 H 0.700-1.30 mg/dL Glomerular Filtration Rate Calc 50 >90 mL/min BUN/Creatinine Ratio 9.4 L 10.0-20.0 Serum Glucose 134 H 74-106 mg/dL Calcium Level 9.5 8.7-10.4 mg/dL Magnesium Level 2.1 1.6-2.6 mg/dL Assessment/Plan Problem List: (1) Ureteral stone Plan expulsive measures pain meds prn fluids strain urine Plan discussed with: Patient, Other VENKATESH JACOBSON NP Oct 21, 2024 16:49
[2024-10-21 20:35] LABS: Albumin 4.5 g/dL (3.2-4.8); Alkaline Phosphatase 76.0 U/L (46-116); Total Protein 7.6 g/dL (5.7-8.2)
[2024-10-21 20:36] LABS: Bilirubin, Direct 0.2 mg/dL (<0.3); Bilirubin, Total 0.7 mg/dL (0.2-1.0)
[2024-10-21 20:37] LABS: Alanine Aminotransferase 73.0 U/L (7-40)
--- NOTE | 2024-10-22 06:18 | DVHDSRES ---
Discharge Summary Date of Admission Resident Creating Document: DEXTER KHAN RESIDENT Oct 21, 2024 at 15:11 Date of Discharge: Oct 21, 2024 Admitting Diagnosis # nephrolithiasis with left-sided hydroureter and hydronephrosis # suspected left-sided pyelonephritis Labs/Diagnostic Data: Laboratory Results Test 10/21/24 13:51 White Blood Count 12.1 10^3/uL (4.4-10.8) Red Blood Count 5.47 10^6/uL (4.5-5.90) Hemoglobin 14.7 g/dL (13.5-17.5) Hematocrit 45.4 % (41.0-53.0) Mean Corpuscular Volume 83.0 fL (80.0-100.0) Mean Corpuscular Hemoglobin 26.9 pg (28.0-32.0) Mean Corpuscular Hemoglobin Concent 32.4 g/dL (32.0-36.0) Red Cell Distribution Width 13.8 % (11.8-14.3) Platelet Count 288 10^3/uL (140-450) Mean Platelet Volume 7.6 fL (6.9-10.8) Neutrophils (%) (Auto) 86.6 % (37.0-80.0) Lymphocytes (%) (Auto) 8.0 % (10.0-50.0) Monocytes (%) (Auto) 5.2 % (0.0-12.0) Eosinophils (%) (Auto) 0.1 % (0.0-7.0) Basophils (%) (Auto) 0.1 % (0.0-2.0) Neutrophils # (Auto) 10.4 10 ^3/uL (1.6-8.6) Lymphocytes # (Auto) 1.0 10 ^3/uL (0.4-5.4) Monocytes # (Auto) 0.6 10 ^3/uL (0-1.3) Eosinophils # (Auto) 0 10 ^3/uL (0-0.8) Basophils # (Auto) 0 10 ^3/uL (0-0.2) Nucleated Red Blood Cells 0.0 % Sodium Level 143 mmol/L (136-145) Potassium Level 4.3 mmol/L (3.5-5.1) Chloride Level 108 mmol/L (98-107) Carbon Dioxide Level 27 mmol/L (20-31) Anion Gap 8 (5-15) Blood Urea Nitrogen 17 mg/dL (9-23) Creatinine 1.80 mg/dL (0.700-1.30) Glomerular Filtration Rate Calc 50 mL/min (>90) BUN/Creatinine Ratio 9.4 (10.0-20.0) Serum Glucose 134 mg/dL (74-106) Hemoglobin A1c 5.7 % A1C (<5.7) Calcium Level 9.5 mg/dL (8.7-10.4) Magnesium Level 2.1 mg/dL (1.6-2.6) Total Bilirubin 0.7 mg/dL (0.2-1.0) Direct Bilirubin 0.2 mg/dL (<0.3) Aspartate Amino Transferase (AST) 38 U/L (13-40) Alanine Aminotransferase (ALT) 73 U/L (7-40) Alkaline Phosphatase 76 U/L (46-116) Total Protein 7.6 g/dL (5.7-8.2) Albumin 4.5 g/dL (3.2-4.8) Vitamin B12 Level 353 pg/mL (211-911) Vitamin D 25-Hydroxy 39.8 ng/mL (30.0-100) Folic Acid 13.54 ng/mL (>5.38) Thyroid Stimulating Hormone (TSH) 2.01 uIU/mL (0.55-4.78) Other Laboratory Tests 10/21/24 13:51 Brief Hx & Hospital Course: Patient is 34 years old male with morbid obesity came with a comfortably flank pain. S the patient history of having left testicular pain in the morning with ready to the left flank, intermittent, 8/10, really with some pain medication. Pain is associated nausea but no vomiting. Patient also reported some cheese and switching but no chest pain or shortness of breath or acute joint pain or swelling or DC UTI. Initial lab workup revealed leukocytosis WBC 12.1, neutrophil 86%, serum creatinine 1.80, GFR 50. CT abdomen pelvis reviewed1. 2.5 mm left distal ureteral calculus with associated mild left hydronephrosis and hydroureter. Hepatic steatosis. Postoperative changes of cholecystectomy. Mild prostatic enlargement. Descending and sigmoid colon diverticulosis without evidence of acute diverticulitis. Patient was being treated conservatively with IV antibiotic ceftriaxone, IV fluid, Flomax. Urology consultation was done. Patient left AMA. Condition unknown on discharge. Operations or Procedures [address] [address] Ph: [phone] DIAGNOSTIC IMAGING Diagnostic Imaging Report : [id number] Signed PATIENT: JC DESAICT: [id number] UNIT: [id number] : 1990 LOC: ER ROOM / BED: / AGE / SEX: 34 / M ADM STATUS: REG ER SERVICE 1111 ORDERING PHYSICIAN: NESHA TYLER MD PROCEDURE(s): ABPL - CT AB PEL WO CON-NO ORAL OR IV REASON: stone ORDER NUMBER(s): [id number], ACCESSION NUMBER(s): [id number] EXAM: CT CT AB PEL WO CON-NO ORAL OR IV HISTORY: stone 34-year-old male with abdominal pain. COMPARISON: None TECHNIQUE: Helical CT images of the abdomen and pelvis were performed without contrast. Sagittal and coronal reformatted images were obtained. This CT exam was performed using one or more of the following dose reduction techniques: Automated exposure control, adjustment of the mA and/or kV according to patient size, or use of iterative reconstruction technique. Radiation Dose: CT Abdomen/Pelvis: CTDIvol 25.5 mGy, DLP 1828.08 mGy*cm. FINDINGS: Urinary tract: There is mild left hydronephrosis and hydroureter secondary to a distal ureteral 2.5 mm calculus (images 95-96, series 2). No right renal or ureteral calculi, hydronephrosis, or hydroureter. No urinary bladder calculi. The prostate is mildly enlarged. Miscellaneous: The heart is not enlarged. There is a calcified granuloma in the right upper lobe just above the horizontal fissure.. The gallbladder is surgically absent. The liver is diffusely fatty density and measures 19 cm longitudinal. The noncontrast spleen, pancreas, and adrenal glands are unremarkable. No abdominal aortic aneurysm. No abnormal bowel dilatation, free air, or free fluid. There are descending and sigmoid colon diverticula without evidence of acute diverticulitis. The appendix is not dilated and does not appear inflamed. There are degenerative changes of the sacroiliac joints, greater on the right. 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 There is [id number] lumbar degenerative disc disease. There is mild anterior wedging of the T10 and T11 vertebral bodies which may be due to chronic mild compression fractures or sequela of degenerative disc disease. IMPRESSION: 1. 2.5 mm left distal ureteral calculus with associated mild left hydronephrosis and hydroureter. 2. Hepatic steatosis. 3. Postoperative changes of cholecystectomy. 4. Mild prostatic enlargement. 5. Descending and sigmoid colon diverticulosis without evidence of acute diverticulitis. 6. No evidence of bowel obstruction, acute appendicitis, or other acute process in the abdomen or pelvis. ATED BY: RINA URIARTE MD DICTATED DATE/TIME: 10/21/24 121 SIGNED BY: RINA URIARTE MD SIGNED DATE/TIME: 10/21/24 121 CC: [place] [address] Ph: [phone] DIAGNOSTIC IMAGING Diagnostic Imaging Report : [id number] Signed PATIENT: JANET DESAIOACCT: [id number] UNIT: [id number] : 1990 [facility]GE / SEX: 34 / M ADM STATUS: ADM IN SERVICE 1527 ORDERING PHYSICIAN: DEXTER KHAN RESIDENT PROCEDURE(s): KIDUS - KIDNEY REASON: Rule out renal hydronephrosis/nephrolithiasis/pyelonephritis ORDER NUMBER(s): [id number], ACCESSION NUMBER(s): [id number] CLINICAL HISTORY: Rule out renal hydronephrosis/nephrolithiasis/pyelonephritis TECHNIQUE: Complete ultrasound exam of the kidneys and bladder was performed. COMPARISON: None FINDINGS: The right kidney has normal echogenicity and measures 12.5 cm. There is no focal parenchymal abnormality or evidence for stone. There is no hydronephrosis. The left kidney has normal echogenicity and measures 11.4 cm. There is no focal parenchymal abnormality or evidence for stone. There is no hydronephrosis. The bladder is grossly unremarkable. IMPRESSION: NO SIGNIFICANT SONOGRAPHIC ABNORMALITY OF THE KIDNEYS. ATED BY: SADAF MENA MD DICTATED DATE/TIME: 10/21/241623 SIGNED BY: SADAF MENA MD SIGNED DATE/TIME: 10/21/241623 CC: Condition at Discharge: Undetermined Final Diagnosis/Problems List # nephrolithiasis with left-sided hydroureter and hydronephrosis # suspected left-sided pyelonephritis # intractable left flank pain with nausea likely due to above # leukocytosis under evaluation # BRANDON likely due to VM[facility] # hepatic steatosis # diverticulosis with the diverticulitis # benign enlargement of prostate # morbid obesity Discharge Disposition: AMA Discharge Instruct/Medications Diet comment: Patient left AMA Follow Up/Referral: Patient left AMA Medications: Patient left AMA Scheduled Cephalexin (Keflex Capsule), 2 CAP PO BID Ibuprofen (Ibuprofen), 1 TAB PO Q6HPRN Discharge Statement: "Patient was advised to return to the ER or call 911 if any headaches, dizziness, shortness of breath, chest pain, abdominal pain, bleeding, fevers, or worsening of medical condition. Patient was counseled about treatment plan, medications, possible side effects, patientverbalized understanding. All questions were answered to the best of my ability. This discharge took greater then 30 minutes in planning, reviewing documentation, counseling the patient, and discussing with other team members." ASSESSMENT ASSESSMENT Assessment DEXTER KHAN RESIDENT Oct 22, 2024 06:18
[2024-10-23 08:07] LABS: Prostate Specific Antigen 1.0 ng/mL (0.0-4.0)
== END 2024-10-21 17:07 | disposition left against medical advice (07) | DRG 463 ==
LOC: ER 10:33 → OVERFLOW 15:11
PROVIDERS: ADMIT Internal Medicine; ATTEND Emergency Medicine
DX: N13.6 Pyonephrosis (principal); N17.0 Acute kidney failure with tubular necrosis; D72.829 Elevated white blood cell count, unspecified; E66.01 Morbid (severe) obesity due to excess calories; Z68.43 Body mass index [BMI] 50.0-59.9, adult; N40.0 Benign prostatic hyperplasia without lower urinary tract symptoms; K76.0 Fatty (change of) liver, not elsewhere classified; Z53.29 Procedure and treatment not carried out because of patient's decision for other reasons; K57.30 Diverticulosis of large intestine without perforation or abscess without bleeding; Z90.49 Acquired absence of other specified parts of digestive tract; Z84.1 Family history of disorders of kidney and ureter; Z79.899 Other long term (current) drug therapy
CPT/HCPCS: 36415; 74176; 76775; 80048; 80076; 82306; 82607; 82746; 83036; 83735; 84154; 84443; 85025; 96374; 96375; G0378; J1885